=== PATIENT | female | born 1975 | race Caucasian/White ===

== ENCOUNTER 2020-08-07 18:23 | Emergency (ER) | payer MEDICAID ==
[~2020-08-07] VITALS: Ht 152.4 cm; Wt 75.3 kg
[2020-08-07 18:27] VITALS: BP 168/88
--- NOTE | 2020-08-07 18:32 | NUR ---
Patient ambulated to bed 11. RN evaluating the patient at bedside.
--- NOTE | 2020-08-07 18:40 | NUR ---
Dr. David is evaluating patient at bedside.
--- NOTE | 2020-08-07 18:56 | NUR ---
45 y/o F brought in from home with c/c abdominal pain x 1.5 weeks. Patient presents A&Ox4, ambulatory, Occitan speaking and states LUQ abdominal pain x 1.5 weeks. Patient states 1 episode of vomiting of black emesis. Patient states abdominal pain 5/10, sharp/constant, non-radiating. Patient reports taking Tylenol with minor relief. Patient denies fever/chills, diarrhea, constipation, urinary symptoms. States last BM today; normal/semi-formed. Patient also states loss of appetite due to the pain. radiation monitor in place. Patient placed into a gown. Bed locked in lowest position, side rails x 1, call light in reach. PMH: Hypothyroidism, GERD Meds: Levothyroxine Sx: C-sections NKA
--- NOTE | 2020-08-07 18:58 | NUR ---
therapeutic massage technician at pt bedside.
--- NOTE | 2020-08-07 19:03 | NUR ---
Blood sample and urine collected, handed to CPT Meme at ER bedside.
[2020-08-07 19:11] LABS: BASOPHILS # (AUTO) 0.2 K/uL (0.00-0.22); BASOPHILS % (AUTO) 2.5 % (0.0-2.0); EOSINOPHILS # (AUTO) 0.3 K/uL (0-0.4); EOSINOPHILS % (AUTO) 3.2 % (0.0-4.0); HEMATOCRIT 40.4 % (36-48); HEMOGLOBIN 13.4 g/dL (12.0-16.0); LYMPHOCYTES # (AUTO) 1.9 K/uL (2.5-16.5); MEAN CORPUSCULAR HEMOGLOBIN 29 pg (27-31); MEAN CORPUSCULAR HGB CONC 33 g/dL (33-37); MEAN CORPUSCULAR VOLUME 87.3 fL (80-94); MONOCYTES # (AUTO) 0.4 K/uL (0.8-1.0); MONOCYTES % (AUTO) 5.2 % (1.7-9.3); NEUTROPHILS # (AUTO) 5.4 K/uL (1.8-7.7); NEUTROPHILS % (AUTO) 66.1 % (42.2-75.2); PLATELET COUNT (AUTO) 204 K/uL (140-450); RED BLOOD CELL COUNT(AUTO) 4.63 MIL/uL (4.20-5.40); RED CELL DISTRIBUTION WIDTH 14.7 % (11.6-13.7); WHITE BLOOD COUNT (AUTO) 8.1 K/uL (4.8-10.8)
--- NOTE | 2020-08-07 19:12 | NUR ---
Patient transported to CT via wheelchair.
--- NOTE | 2020-08-07 19:16 | NUR ---
Report and transfer of care given to Joseph/ORLY Garcia.
[2020-08-07 19:23] LABS: APPEARANCE,URINE CLEAR (CLEAR); BILIRUBIN,URINE NEGATIVE (NEGATIVE); BLOOD, URINE TRACE-I (NEGATIVE); COLOR,URINE YELLOW (YELLOW); LEUKOCYTE ESTERASE ,URINE NEGATIVE (NEGATIVE); NITRITE, URINE NEGATIVE (NEGATIVE); PH,URINE 8.5 (5.0-9.0); UGLUCOSE NEGATIVE (NEGATIVE)
[2020-08-07 19:29] LABS: ANION GAP 9.8 (8-16); CREATININE 0.6 mg/dL (0.6-1.3); POTASSIUM 3.8 mmol/L (3.5-5.1); TOTAL BILIRUBIN 0.3 mg/dL (0.0-1.0)
[2020-08-07] MEDS ORDERED: MIRABULK PO (20:07)
[2020-08-07 20:22] VITALS: BP 142/80
== END 2020-08-07 20:22 | disposition home or self-care (01) ==
LOC: MED 18:23
DX: K80.20 Calculus of gallbladder without cholecystitis without obstruction (principal); K59.00 Constipation, unspecified; E03.9 Hypothyroidism, unspecified
CPT/HCPCS: 36415; 80053; 81003; 81025; 83690; 84484; 85025; 99284

== ENCOUNTER 2020-09-15 15:51 | Emergency (ER) | payer MEDICAID ==
[~2020-09-15] VITALS: Ht 154.9 cm; Wt 74.8 kg
[~2020-09-15 15:51] MED LIST: MIRABULK PO
[2020-09-15 16:05] VITALS: BP 148/83
--- NOTE | 2020-09-15 16:10 | NUR ---
Patient to restroom for urine sample.
--- NOTE | 2020-09-15 16:18 | NUR ---
Patient ambulated to bed 11 with steady/even gait.
--- NOTE | 2020-09-15 16:25 | NUR ---
Yarely stephen in [facility] - 09[facility]15[facility]20 [facility] [address] [facility] Leon is evaluating patient at bedside.
--- NOTE | 2020-09-15 16:28 | NUR ---
DR KNAPP AT BEDSIDE EVALUATING PT
--- NOTE | 2020-09-15 16:30 | NUR ---
45 y/o F BIB self with c/c abdominal pain x 1 month. Patient A&Ox4, reports LUQ and RLQ pain. Reports 5/10, "sore/constant," non-radiating. Patient states associated nasuea, chills, diarrhea and dysuria. Denies vomiting, fever, dizziness, headache, SOB, CP, other urinary symptoms. Patient states Advil prior to arrival with minor relief. Last BM today; bowel sounds normoactive x 4 quadrants. Pt placed into a gown; urine sample collected. Bed locked in lowest position, side rails x 1. PMH: GERD Meds: Denies Sx: NKA
[2020-09-15] MEDS ORDERED: ONDANSETRON 4 MG ODT PO ONE (16:35)
[2020-09-15] MEDS ORDERED: KETOROLAC 60 MG/2 ML VIAL IM ONE (16:35)
[2020-09-15] MEDS ORDERED: CIPR500T4 PO (16:50)
[2020-09-15] MEDS ORDERED: ONDA8TAB87 PO (16:50)
[2020-09-15] MEDS ORDERED: IBUP-2213 PO (16:50)
--- NOTE | 2020-09-15 16:52 | NUR ---
Patient states positive relief to pain and nausea; rates LUQ pain 4/10; no nausea.
[2020-09-15 17:13] VITALS: BP 148/83
--- NOTE | 2020-09-15 17:13 | NUR ---
Patient discharged with v/s stable. Written and verbal after care instructions given and explained. Patient alert, oriented and verbalized understanding of instructions. Ambulatory with steady gait. All questions addressed prior to discharge. ID band removed. Patient advised to follow up with PMD. Rx of Zofran, Cipro, Ibuprofen given. Patient educated on indication of medication including possible reaction and side effects. Opportunity to ask questions provided and answered.
== END 2020-09-15 17:13 | disposition home or self-care (01) ==
LOC: MED 15:51
DX: N12 Tubulo-interstitial nephritis, not specified as acute or chronic (principal); R10.12 Left upper quadrant pain; R19.7 Diarrhea, unspecified; K21.9 Gastro-esophageal reflux disease without esophagitis; E07.9 Disorder of thyroid, unspecified
CPT/HCPCS: 81002; 81025; 96372; 99283; J1885; Q0162

== ENCOUNTER 2022-08-02 21:11 | Emergency (ER) | payer MEDICAID ==
[~2022-08-02] VITALS: Ht 154.9 cm; Wt 75.7 kg
[~2022-08-02 21:11] MED LIST changes: +CIPR500T4 PO; +IBUP-2213 PO; +ONDA8TAB87 PO
[2022-08-02 22:13] VITALS: BP 160/100
--- NOTE | 2022-08-02 22:28 | NUR ---
PT TAKEN TO BED 9
--- NOTE | 2022-08-02 22:28 | NUR ---
Yarely stephen in [facility] - 08/02/22 at 2228 by ARMANDO PT TAKEN TO BED 12
[2022-08-02] MEDS ORDERED: ONDANSETRON 4 MG ODT PO ONE (22:45)
[2022-08-02] MEDS ORDERED: ONDANSETRON 4 MG/2 ML VIAL IVP ONE (22:50)
[2022-08-02 23:13] LABS: BASOPHILS # (AUTO) 0.1 K/uL (0.00-0.22); BASOPHILS % (AUTO) 0.6 % (0.0-2.0); EOSINOPHILS # (AUTO) 0.1 K/uL (0-0.4); EOSINOPHILS % (AUTO) 0.8 % (0.0-4.0); HEMATOCRIT 41.2 % (36-48); HEMOGLOBIN 13.8 g/dL (12.0-16.0); LYMPHOCYTES # (AUTO) 1.2 K/uL (2.5-16.5); LYMPHOCYTES % (AUTO) 12.3 % (20.5-51.1); MEAN CORPUSCULAR HEMOGLOBIN 29 pg (27-31); MEAN CORPUSCULAR HGB CONC 34 g/dL (33-37); MEAN CORPUSCULAR VOLUME 85.9 fL (80-94); MONOCYTES # (AUTO) 0.4 K/uL (0.8-1.0); MONOCYTES % (AUTO) 4.4 % (1.7-9.3); NEUTROPHILS # (AUTO) 7.7 K/uL (1.8-7.7); NEUTROPHILS % (AUTO) 81.9 % (42.2-75.2); PLATELET COUNT (AUTO) 222 K/uL (140-450); RED BLOOD CELL COUNT(AUTO) 4.79 MIL/uL (4.20-5.40); WHITE BLOOD COUNT (AUTO) 9.4 K/uL (4.8-10.8)
[2022-08-02] MEDS ORDERED: ACETAMINOPHEN EXTRA STRENGTH 500 MG TAB PO ONE (23:30)
[2022-08-02] MEDS ORDERED: MECLIZINE 25 MG TAB PO ONE (23:30)
[2022-08-02] MEDS ORDERED: DEXAMETHASONE 10 MG/ML VIAL IVP ONE (23:30)
[2022-08-02 23:57] LABS: ALBUMIN 3.7 g/dL (3.4-5.0); ANION GAP 7.2 (8-16); ASPARTATE AMINOTRANSFERASE 19 U/L (15-37); CARBON DIOXIDE 31.4 mmol/L (21-32); CHLORIDE 102 mmol/L (98-107); CREATININE 0.6 mg/dL (0.6-1.3); GFR ARICAN-AMERICAN 137 mL/min (>90); GLUCOSE 129 mg/dL (74-106); LIPASE 121 U/L (73-393); POTASSIUM 3.6 mmol/L (3.5-5.1); SODIUM SERUM 137 mmol/L (136-145); TOTAL BILIRUBIN 0.3 mg/dL (0.0-1.0); UREA NITROGEN, BLOOD 15 mg/dL (7-18)
[2022-08-03] MEDS ORDERED: MECLIZINE 25 MG TAB ONE (00:43)
[2022-08-03] MEDS ORDERED: DEXAMETHASONE 10 MG/ML VIAL ONE (00:43)
[2022-08-03] MEDS ORDERED: ACETAMINOPHEN EXTRA STRENGTH 500 MG TAB ONE (00:44)
[2022-08-03] MEDS ORDERED: LOSA25TA32 PO (02:05)
[2022-08-03] MEDS ORDERED: ACET-10509 PO (02:22)
[2022-08-03] MEDS ORDERED: ONDA-188 PO (02:23)
[2022-08-03] MEDS ORDERED: ACET-8001 PO (02:23)
[2022-08-03 02:37] VITALS: BP 136/67
--- NOTE | 2022-08-03 02:41 | NUR ---
Patient discharged with v/s stable. Written and verbal after care instructions given and explained. Patient verbalized understanding. Ambulatory with steady gait. All questions addressed prior to discharge. Advised to follow up with PMD.
== END 2022-08-03 02:41 | disposition home or self-care (01) ==
LOC: MED 21:11
DX: R51.9 Headache, unspecified (principal); I10 Essential (primary) hypertension; H53.8 Other visual disturbances; K21.9 Gastro-esophageal reflux disease without esophagitis; E03.9 Hypothyroidism, unspecified; Z79.899 Other long term (current) drug therapy
CPT/HCPCS: 36415; 70450; 80053; 83690; 84484; 85025; 96374; 96375; 99285; J1100; J2405; J8597